=== PATIENT | male | born 1930 | race Caucasian/White ===

== ENCOUNTER 2018-11-03 21:14 | Inpatient (IN) | payer MEDICARE, BC ==
[~2018-11-03] VITALS: Ht 177.8 cm; Wt 100.0 kg
[2018-11-03] MEDS ORDERED: PANT40TA25 PO (21:34)
[2018-11-03] MEDS ORDERED: SERT25TA PO (21:34)
[2018-11-03 21:40] LABS: BASOPHILS % (AUTO) 0.5 % (0.0-2.0); EOSINOPHILS % (AUTO) 2.2 % (1.0-6.0); HEMOGLOBIN 12.7 g/dL (13.5-17.5); LYMPHOCYTES # (AUTO) 1.3 K/uL (1.0-4.8); LYMPHOCYTES % (AUTO) 11.4 % (22.0-44.0); MEAN CORPUSCULAR HEMOGLOBIN 26.8 pg (26.0-34.0); MEAN CORPUSCULAR HGB CONC 31.7 G/dL (31.0-37.0); MEAN CORPUSCULAR VOLUME 85 fL (80-100); MONOCYTES # (AUTO) 0.9 K/uL (0.1-1.0); MONOCYTES % (AUTO) 7.7 % (2.0-9.0); NEUTROPHILS % (AUTO) 78.2 % (40.0-70.0); PLATELET COUNT (AUTO) 328 K/uL (150-450); RED BLOOD CELL COUNT(AUTO) 4.74 MIL/uL (4.50-5.90); RED CELL DISTRIBUTION WIDTH 20.3 % (11.5-14.5)
[2018-11-03 21:57] LABS: ANION GAP 5 mmol/L (8-16); CALCIUM, TOTAL 9.3 mg/dL (8.8-10.5); CARBON DIOXIDE 30 mmol/L (22-29); CHLORIDE 104 mmol/L (98-107); GLUCOSE,RANDOM 96 mg/dL (70-110); POTASSIUM 4.6 mmol/L (3.5-5.1); SODIUM SERUM 139 mmol/L (136-145); UREA NITROGEN, BLOOD 17 mg/dL (7-18)
[2018-11-03 21:58] LABS: GLOMERULAR FILTR. RATE CALC > 60 mL/min (>60)
[2018-11-03 22:03] LABS: ALANINE AMINOTRANSFERASE 19 U/L (12-78); ALKALINE PHOSPHATASE 120 U/L (46-116); ASPARTATE AMINOTRANSFERASE 18 U/L (15-37); BILIRUBIN,TOTAL 0.5 mg/dL (0.1-1.0); TOTAL PROTEIN, SERUM 7.2 g/dL (6.4-8.2)
[2018-11-03 22:16] LABS: ACETAMINOPHEN < 2 mcg/mL (10-30)
[2018-11-03 22:25] LABS: SALICYLATE < 2.8 mg/dL (2.8-20.0)
[2018-11-04] MEDS ORDERED: LORazepam 2 MG TABLET PO PRN (00:15)
[2018-11-04] MEDS ORDERED: HALOPERIDOL 5 MG TABLET PO PRN (00:15)
[2018-11-04] MEDS ORDERED: ZOLPIDEM TARTRATE 10 MG TABLET PO PRN (00:15)
[2018-11-04 04:47] VITALS: BP 174/94
[2018-11-04 10:13] VITALS: BP 132/59
[2018-11-04 11:23] VITALS: BP 158/85
[2018-11-04] MEDS ORDERED: MAG HYDROX/AL HYDROX/SIMETH ES 30 ML SUSPENSION UDCUP PO PRN (12:00)
[2018-11-04] MEDS ORDERED: LOPERAMIDE HCL 2 MG CAPSULE PO PRN (12:00)
[2018-11-04] MEDS ORDERED: ALBUTEROL SULFATE HFA 90 MCG/PUFF 8 GM INHALER IH PRN (12:00)
[2018-11-04] MEDS ORDERED: ACETAMINOPHEN 325 MG TABLET PO PRN (12:00)
[2018-11-04] MEDS ORDERED: PETROLATUM,WHITE 28 GM JELLY TP PRN (12:00)
[2018-11-04] MEDS ORDERED: ONDANSETRON HCL 4 MG TABLET PO PRN (12:00)
[2018-11-04] MEDS ORDERED: IBUPROFEN 400 MG TABLET PO PRN (12:00)
[2018-11-04] MEDS ORDERED: MAGNESIUM HYDROXIDE SUSPENSION 30 ML UDCUP PO PRN (12:00)
[2018-11-04] MEDS ORDERED: NICOTINE 14 MG/24 HOUR PATCH TD PRN (12:00)
[2018-11-04] MEDS ORDERED: DOCUSATE SODIUM 100 MG CAPSULE PO PRN (12:00)
[2018-11-04] MEDS ORDERED: CloNIDine HCL 0.1 MG TABLET PO PRN (12:00)
[2018-11-04] MEDS ORDERED: GuaiFENesin/D-METHORPHAN [SUGAR-FREE] 200-20MG/10 ML SYRUP UDCUP PO PRN (12:00)
[2018-11-04 20:00] VITALS: BP 131/77
[2018-11-04] MEDS ORDERED: SERTRALINE HCL 50 MG TABLET PO SCH (21:00)
[2018-11-05 07:42] LABS: HEMOGLOBIN A1C 6.1 % (4.5-6.2)
[2018-11-05 07:44] VITALS: BP 147/74
[2018-11-05 08:01] LABS: CHOL/HDL RATIO 3.2 (4.2-7.3); THYROID STIMULATING HORMONE 1.09 uIU/mL (0.36-3.74)
[2018-11-05] MEDS ORDERED: AmLODIPine BESYLATE 2.5 MG TABLET PO SCH (09:00)
[2018-11-05] MEDS: MULTIVITAMINS WITH MINERALS, THERAPEUTIC TABLET PO SCH (09:24)
[2018-11-05] MEDS: PANTOPRAZOLE SODIUM 40 MG DR TABLET PO SCH (09:24)
[2018-11-05] MEDS: ZINC SULFATE 220 MG CAPSULE PO SCH (09:25)
[2018-11-05] MEDS: ASCORBIC ACID 500 MG TABLET PO SCH (09:25)
[2018-11-05 12:08] VITALS: BP 141/86
[2018-11-05 15:28] VITALS: BP 139/60
[2018-11-05] MEDS: FLUoxetine HCL 10 MG CAPSULE PO SCH (18:03)
[2018-11-05 19:25] VITALS: BP 142/78
[2018-11-05 23:05] VITALS: BP 145/80
[2018-11-06 00:47] VITALS: BP 147/80
[2018-11-06 05:45] VITALS: BP 158/86
[2018-11-06 08:32] VITALS: BP 139/93
[2018-11-06] MEDS ORDERED: AmLODIPine BESYLATE 5 MG TABLET PO SCH (09:00)
[2018-11-06] MEDS: ZINC SULFATE 220 MG CAPSULE PO SCH (09:18)
[2018-11-06] MEDS: ASCORBIC ACID 500 MG TABLET PO SCH (09:18)
[2018-11-06] MEDS: PANTOPRAZOLE SODIUM 40 MG DR TABLET PO SCH (09:18)
[2018-11-06] MEDS: MULTIVITAMINS WITH MINERALS, THERAPEUTIC TABLET PO SCH (09:18)
[2018-11-06] MEDS: FLUoxetine HCL 10 MG CAPSULE PO SCH (09:18)
[2018-11-06 12:15] VITALS: BP 152/96
[2018-11-06] MEDS ORDERED: METO25 PO (15:01)
[2018-11-06] MEDS ORDERED: FURO20 PO (15:01)
[2018-11-06] MEDS ORDERED: METF-960 PO (15:01)
[2018-11-06] MEDS ORDERED: KDUR10 PO (15:01)
[2018-11-06] MEDS ORDERED: APIX5TAB PO (15:01)
[2018-11-06] MEDS ORDERED: KDUR20 PO (15:10)
[2018-11-06] MEDS: POTASSIUM CHLORIDE 20 MEQ ER TABLET PO SCH (15:21)
[2018-11-06] MEDS: FUROSEMIDE 20 MG TABLET PO SCH (15:21)
[2018-11-06 16:00] VITALS: BP 148/78
[2018-11-06] MEDS: APIXABAN 5 MG TABLET PO SCH (16:21)
[2018-11-06] MEDS: METOPROLOL TARTRATE 25 MG TABLET PO SCH (16:21)
[2018-11-07 07:10] LABS: BASOPHILS % (AUTO) 0.7 % (0.0-2.0); EOSINOPHILS % (AUTO) 2.3 % (1.0-6.0); HEMATOCRIT 35.7 % (41-53); HEMOGLOBIN 11.4 g/dL (13.5-17.5); LYMPHOCYTES # (AUTO) 1.1 K/uL (1.0-4.8); LYMPHOCYTES % (AUTO) 9.9 % (22.0-44.0); MEAN CORPUSCULAR HEMOGLOBIN 27.2 pg (26.0-34.0); MEAN CORPUSCULAR VOLUME 85 fL (80-100); MONOCYTES # (AUTO) 1.3 K/uL (0.1-1.0); MONOCYTES % (AUTO) 11.5 % (2.0-9.0); NEUTROPHILS # (AUTO) 8.5 K/uL (1.8-7.7); NEUTROPHILS % (AUTO) 75.6 % (40.0-70.0); PLATELET COUNT (AUTO) 266 K/uL (150-450); RED CELL DISTRIBUTION WIDTH 20.2 % (11.5-14.5)
[2018-11-07 07:17] VITALS: BP 148/73
[2018-11-07] MEDS ORDERED: MetFORMIN HCL 500 MG TABLET PO SCH (07:30)
[2018-11-07] MEDS: FUROSEMIDE 20 MG TABLET PO SCH (08:00)
[2018-11-07] MEDS: METOPROLOL TARTRATE 25 MG TABLET PO SCH (08:00)
[2018-11-07] MEDS: MULTIVITAMINS WITH MINERALS, THERAPEUTIC TABLET PO SCH (08:00)
[2018-11-07] MEDS: POTASSIUM CHLORIDE 20 MEQ ER TABLET PO SCH (08:00)
[2018-11-07] MEDS: APIXABAN 5 MG TABLET PO SCH (08:00)
[2018-11-07] MEDS: PANTOPRAZOLE SODIUM 40 MG DR TABLET PO SCH (08:00)
[2018-11-07] MEDS: ZINC SULFATE 220 MG CAPSULE PO SCH (08:01)
[2018-11-07] MEDS: FLUoxetine HCL 10 MG CAPSULE PO SCH (08:01)
[2018-11-07] MEDS: ASCORBIC ACID 500 MG TABLET PO SCH (08:01)
[2018-11-07 08:05] VITALS: BP 152/91
[2018-11-07] MEDS ORDERED: MULT-1239 PO (11:00)
[2018-11-07] MEDS ORDERED: ASCO500 PO (11:00)
[2018-11-07] MEDS ORDERED: ZINC220 PO (11:01)
[2018-11-07] MEDS ORDERED: PROZ10 PO (11:03)
== END 2018-11-07 15:20 | disposition home or self-care (01) | DRG 885 ==
LOC: EMS 21:17 → 3EI 11-04 03:30
PROVIDERS: ADMIT Psychiatry & Neurology Psychiatry; ATTEND Psychiatry & Neurology Psychiatry
DX: F33.2 Major depressive disorder, recurrent severe without psychotic features (principal); D64.9 Anemia, unspecified; D72.829 Elevated white blood cell count, unspecified; F03.90 Unspecified dementia, unspecified severity, without behavioral disturbance, psychotic disturbance, mood disturbance, and anxiety; I10 Essential (primary) hypertension; K21.9 Gastro-esophageal reflux disease without esophagitis; L89.159 Pressure ulcer of sacral region, unspecified stage; L89.309 Pressure ulcer of unspecified buttock, unspecified stage; T43.222A Poisoning by selective serotonin reuptake inhibitors, intentional self-harm, initial encounter; T47.1X2A Poisoning by other antacids and anti-gastric-secretion drugs, intentional self-harm, initial encounter; Y92.89 Other specified places as the place of occurrence of the external cause; Z79.899 Other long term (current) drug therapy
CPT/HCPCS: 83036; 84443; 93005; G0480; G0481